=== PATIENT | female | born 1980 | race Caucasian/White ===

== ENCOUNTER 2019-09-10 17:01 | Inpatient (IN) ==
[2019-09-10] MEDS ORDERED: RINGER'S SOLUTION,LACTATED 1,000 ML IV ONE (20:21)
[2019-09-10] MEDS ORDERED: DEXTROSE 5%-LACTATED RINGERS 1,000 ML IV PRN (20:21)
[2019-09-10] MEDS ORDERED: PENICILLIN G POTASSIUM 5 MILLIONUNT in DEXTROSE 5 % IN WATER 100 ML IV ONE ×2 (20:21)
[2019-09-10] MEDS ORDERED: OXYTOCIN/DEXTROSE 5%-WATER 30 UNITS/500 ML BAG IV ONE (20:21)
[2019-09-10] MEDS ORDERED: ONDANSETRON 4 MG TAB.RAPDIS PO PRN (20:21)
[2019-09-10] MEDS ORDERED: INSULIN REGULAR, HUMAN 100 UNITS in NORMAL SALINE 100 ML IV PRN ×2 (20:34)
[2019-09-10 20:45] LABS: Hematocrit 37.8 % (37.0-47.0); Hemoglobin 13.1 gm/dL (12.5-16.0); Mean Cell Volume 89.2 fl (78-100); Mean Corpuscular Hemoglobin 30.9 pg (27-31); Mean Corpuscular Hgb Conc 34.7 g/dl (32-36); Mean Platelet Volume 10.1 fl (8-12.5); Neutrophil # 6.9 K/mm3 (1.3-6.0); Neutrophil % 66.8 % (42-75.0); Platelet Count 185 K/mm3 (150-450); Red Blood Count 4.24 M/mm3 (4.2-5.4); White Blood Count 10.4 K/mm3 (4.0-10.5)
--- NOTE | 2019-09-10 21:03 | HP ---
Chief Complaint - Chief Complaint Date of Service: 09/10/19 Time of Service: 20:51 Chief Complaint: Induction/Augmentation of labor History of Present Illness: 38 yo at 38 weeks admitted for induction/augmentation of labor due to oligohydramnios and 2 min late deceleration on NST. This complicated by anemia, AMA, PE at 11wks gestation, GDM, and oligohydramnios. Rh negative Rubella immune GBS positive Medical History (Last Reviewed 09/10/19 @ 20:53 by Anastacio Carter DO) Pulmonary embolism (Acute) Onset Date: ~04/2011-hospitalized x1 week.- 03/09/18-PE with Gestational diabetes Onset Date: 07/10/19 Migraine Onset Date: Unknown PCOS (polycystic ovarian syndrome) Onset Date: ~06/06/16 Abnormal Pap smear of cervix Onset Date: ~2001 Anemia affecting Onset Date: ~07/05/13 Deviated nasal septum Onset Date: ~1993 repaired History of chlamydia infection Onset Date: ~1998 History of irregular menstrual cycles Onset Date: Unknown Surgical History: Surgical History (Last Reviewed 09/10/19 @ 20:53 by Anastacio Carter DO) History of adenoidectomy Onset Date: ~1994 History of colposcopy Onset Date: ~2002 History of cryosurgery Onset Date: ~2002 History of dilation and curettage Onset Date: ~11/02/11 History of hysteroscopy Onset Date: ~11/02/11 polypectomy History of wisdom tooth extraction Onset Date: ~2004 Family History: Family History (Last Reviewed 09/10/19 @ 20:53 by Anastacio Carter DO) Mother Osteoarthritis Hypertension Uterine fibroid hysterectomy Father COPD (chronic obstructive pulmonary disease) Osteoarthritis Emphysema of lung Sister Cervical cancer, Onset Age: 16 Social History: (Last Reviewed 09/10/19 @ 20:54 by Anastacio Carter DO) Social History: Marital status: current occupational status: employed 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 [employer]: No Tobacco: Smoking Status: Never smoker Alcohol: alcohol intake: former Substance Use: substance use type: does not use Dietary Habits: caffeine: Yes Review Of Systems (GEN) - Review of Systems Generalized/Overall Review: Present: No Symptoms Reported EENTM: Present: No Symptoms Reported Respiratory: Present: No Symptoms Reported Cardiac: Present: No Symptoms Reported Abdominal: Present: Other - contractions q 3-4 min Genitourinary: Present: No Symptoms Reported Musculoskeletal: Present: No Symptoms Reported Neurological: Present: No Symptoms Reported Skin: Present: No Symptoms Reported Endocrine: Present: No Symptoms Reported Allergies/Adverse Reactions: Allergies Allergy/AdvReac Type Severity Reaction Status Date / Time No Known Allergies Allergy Verified 09/10/19 15:15 Home Medications: HOME MEDICATIONS Vits96/Iron Fum/Folic [ S] 1 tab PO DAILY 09/26/13 [Last Taken 09/09/19] enoxaparin 100 mg/mL subcutaneous syringe 100 mg SUBCUT Q12H 03/12/19 [Last Taken 09/10/19 12:00] ferrous sulfate 325 mg (65 mg iron) tablet 325 mg PO DAILY #30 tab 07/03/19 [Last Taken 09/09/19] acetone (urine) test See Rx Instructions .ROUTE .MEDSUPPLY #100 ea 07/12/19 [Last Taken Unknown] blood sugar diagnostic See Rx Instructions .ROUTE .MEDSUPPLY #100 ea 07/12/19 [Last Taken 09/10/19] blood-glucose meter See Rx Instructions .ROUTE .MEDSUPPLY #1 ea 07/12/19 [Last Taken 09/10/19] lancets 28 gauge See Rx Instructions .ROUTE .MEDSUPPLY #100 ea 07/12/19 [Last Taken 09/10/19] Ascorbic Acid [Vitamin C] 1,000 mg PO DAILY 09/10/19 [Last Taken 09/09/19] breast pump See Rx Instructions .ROUTE .MEDSUPPLY #1 ea 09/10/19 [Last Taken Unknown] Exam - Exam Vital Signs: Vital Signs - Last Taken Temp 36.3 C 09/10/19 20:29 Pulse 97 09/10/19 20:29 Resp 18 09/10/19 20:29 BP 131/83 09/10/19 20:29 Pulse Ox 98 09/10/19 20:29 Constitutional: Present: Alert, Oriented x3, Cooperative, No distress ENT Exam: Present: hearing grossly normal Neck: Absent: thyromegaly Breasts: Present: Exam deferred Respiratory: Present: lungs clear, no respiratory distress Cardiovascular/Chest: Present: regular rate, rhythm, no edema Abdomen: Present: soft, nontender, no rebound tenderness, other - gravid /Rectal: Present: Other - Cervix - 3-4//-2 Extremity: Present: no pedal edema, no calf tenderness Skin Exam: Present: normal color, warm/dry, no cyanosis Neurologic: Present: alert, normal mood/affect, oriented x 3 Eye contact: Present: cooperative, good eye contact, normal speech Thoughts: Present: normal thought pattern Diagnostic Studies: Abnormal Lab Results 09/10/19 Range/Units 20:25 Immature Gran % (Auto) 1.00 H (0.001-0.429) % Immature Gran # (Auto) 0.10 H (0.000-0.0310) K/mm3 Neutrophils # 6.9 H (1.3-6.0) K/mm3 Laboratory Results WBC 10.4 K/mm3 (4.0-10.5) 09/10/19 20:25 RBC 4.24 M/mm3 (4.2-5.4) 09/10/19 20:25 Hgb 13.1 gm/dL (12.5-16.0) 09/10/19 20:25 Hct 37.8 % (37.0-47.0) 09/10/19 20:25 MCV 89.2 fl (78-100) 09/10/19 20:25 MCH 30.9 pg (27-31) 09/10/19 20:25 MCHC 34.7 g/dl (32-36) 09/10/19 20:25 RDW 14.0 % (11.5-14.0) 09/10/19 20:25 Plt Count 185 K/mm3 (150-450) 09/10/19 20:25 MPV 10.1 fl (8-12.5) 09/10/19 20:25 Immature Gran % (Auto) 1.00 % (0.001-0.429) H 09/10/19 20:25 Immature Gran # (Auto) 0.10 K/mm3 (0.000-0.0310) H 09/10/19 20:25 Neutrophils % 66.8 % (42-75.0) 09/10/19 20:25 Lymphocytes % 24.3 % (20-51) 09/10/19 20:25 Monocytes % 6.8 % (0.0-9) 09/10/19 20:25 Eosinophils % 0.9 % (0.0-3.0) 09/10/19 20:25 Basophils % 0.2 % (0.0-1.0) 09/10/19 20:25 Nucleated RBC % 0.0 k/mm3 (0-1) 09/10/19 20:25 Neutrophils # 6.9 K/mm3 (1.3-6.0) H 09/10/19 20:25 Lymphocytes # 2.52 k/mm3 (1.5-3.5) 09/10/19 20:25 Monocytes # 0.7 k/mm3 (0.0-1.0) 09/10/19 20:25 Eosinophils # 0.1 k/mm3 (0.0-0.7) 09/10/19 20:25 Absolute Basophils 0.0 k/mm3 (0.0-0.1) 09/10/19 20:25 Assessment/Plan - Assessment/Plan (1) Late deceleration of heart rate Assessment: Admit for pitocin augmentation of labor. IV PCN for GBS prophylaxis per protocol. Accuchecks q2h while in labor. Restart Lovenox 100mg BID 8-12 hours after delivery. Problem: Acute (2) Oligohydramnios Problem: Acute Qualifiers: Fetus number: single or unspecified fetus Trimester: third trimester Qualified Code(s): O41.03X0 - Oligohydramnios, third trimester, not applicable or unspecified (3) AMA (advanced maternal age) multigravida 35+ Problem: Chronic Qualifiers: Trimester: third trimester (4) Gestational diabetes mellitus (GDM) Problem: Acute Qualifiers: Gestational diabetes mellitus control: diet-controlled Trimester: third trimester Qualified Code(s): O24.410 - Gestational diabetes mellitus in , diet controlled (5) Group beta Strep positive Problem: Acute (6) Pulmonary embolism Problem: Resolved Qualifiers: Pulmonary embolism type: single subsegmental (without acute cor pulmonale) Qualified Code(s): I26.93 - Single subsegmental pulmonary embolism without acute cor pulmonale
[2019-09-11] MEDS: PENICILLIN G POTASSIUM 2.5 MILLIONUNT in DEXTROSE 5 % IN WATER 100 ML IV SCH ×8 (00:43→12:49)
--- NOTE | 2019-09-11 00:52 | PN ---
Progess Note - Interim Date: 09/11/19 Time: 00:48 Narrative: 09/11/19 00:48 Patient rating her contractions as a 3 out of 10 Vital signs stable. Pitocin at 8 mu/min. FHT: 130 baseline, reassuring contractions q 2-3 min Cervix: 3-4/70/-3 Impression: Intrauterine at 38 1/7 weeks induction of labor for oligohydramnios and late deceleration on NST. GBS carrier-status post 1 dose penicillin, second dose infusing at present. Gestational diabetes-stable. Pulmonary embolism during first trimester of this on therapeutic anticoagulation. Last dose of Lovenox 100 mg subcu x1 given at 12 PM yesterday. Plan: Continue with induction of labor. Continue IV penicillin per GBS protocol. Continue Accu-Cheks every 2 hours during labor. Will hold Lovenox until 8 hours after delivery.
--- NOTE | 2019-09-11 06:54 | PN ---
Progess Note - Interim Date: 09/11/19 Time: 06:49 Narrative: 09/11/19 06:49 Patient still rating contractions as mild 3/10. Vital signs stable. Pitocin at 14 mu/min. FHT: 135 baseline, reassuring with an occasional late deceleration contractions q 2-4 min Cervix: 4-5/70/-3, posterior Impression: Intrauterine at 38 1/7 weeks induction of labor for oligohydramnios with late deceleration on tracing. Plan: Since patient has made little cervical liner roll changer the past several hours, we will give her a pitocin break and restart in 1 hour.
--- NOTE | 2019-09-11 13:05 | PN ---
Progess Note - Interim Date: 09/11/19 Time: 13:02 Narrative: 09/11/19 13:02 Patient becoming more uncomfortable with contractions Vital signs stable. Pitocin at 10 mu/min. FHT: 140 baseline, reassuring contractions q 2-5 min Cervix: 5/80/-2, AROM-moderate meconium Impression: Intrauterine at 38 1/7 weeks induction of labor for oligohydramnios with late deceleration on NST in office. Gestational diabetes- stable. PE in first trimester of on therapeutic thrombolytics-off now 24 hours. GBS positive-status post 5 doses of penicillin. Plan: Anticipate normal spontaneous vaginal delivery soon.
--- NOTE | 2019-09-11 15:32 | OR ---
Operative Report - Dictated Report Narrative: Spontaneous vaginal delivery of viable male at 1512 on 09/11/2019 with Apgars 7 and 9, weighing 3380 g and OA presentation. Cord clamping delayed approximately 1 minute Placenta delivered complete, intact, with three vessel cord Estimated blood loss: Less than 50 ml Anesthesia: None Lacerations: None History for MU History for Definition: * The number of deliveries resulting in a live the patient experienced prior to current hospitalization * The previous delivery of live twins or any live multiple gestation is considered one live event. *If primagravida or nulliparous is documented select zero for the number of previous live births. Live Events: Live Events: 2
[2019-09-11] MEDS ORDERED: SENNOSIDES 8.6 MG TABLET PO PRN (15:43)
[2019-09-11] MEDS ORDERED: IBUPROFEN 800 MG TABLET PO PRN (15:43)
[2019-09-11] MEDS ORDERED: oxyCODONE HCL/ACETAMINOPHEN 1 TAB TABLET PO PRN (15:43)
[2019-09-11] MEDS ORDERED: BENZOCAINE/MENTHOL 81 SPRAY CAN TP PRN (15:43)
[2019-09-11] MEDS ORDERED: HYDROCORTISONE 30 APPL TUBE TP PRN (15:43)
[2019-09-11] MEDS ORDERED: OXYTOCIN/DEXTROSE 5%-WATER 30 UNITS/500 ML BAG IV ONE (15:43)
[2019-09-11] MEDS ORDERED: BISACODYL 10 MG SUPP.RECT RC PRN (15:43)
[2019-09-11] MEDS ORDERED: GLYCERIN/WITCH HAZEL LEAF 40 APPL BOX TP PRN (15:43)
[2019-09-11] MEDS: IBUPROFEN 800 MG TABLET PO PRN (17:57)
[2019-09-11] MEDS ORDERED: RHO(D) IMMUNE GLOBULIN 1,500 UNIT SYRINGE IM ONE (20:12)
[2019-09-11] MEDS: DOCUSATE SODIUM 100 MG CAPSULE PO SCH (22:14)
[2019-09-11] MEDS: ENOXAPARIN SODIUM 100 MG/ML SYRG SC SCH (23:32)
[2019-09-12] MEDS: FERROUS SULFATE 325 MG TABLET PO SCH (08:34)
[2019-09-12] MEDS: ASCORBIC ACID 500 MG TABLET PO SCH (08:34)
[2019-09-12] MEDS: PRENATAL VITS96/IRON FUM/FOLIC 1 TAB TABLET PO SCH (08:35)
[2019-09-12] MEDS: DOCUSATE SODIUM 100 MG CAPSULE PO SCH ×2 (08:39→20:45)
[2019-09-12] MEDS: ENOXAPARIN SODIUM 100 MG/ML SYRG SC SCH ×2 (11:25→23:12)
--- NOTE | 2019-09-12 12:03 | PN ---
Subjective - Date and Time Seen Date: 09/12/19 Time: 12:02 Objective - Vitals Vitals: Last Vital Signs Temp 36.7 C 09/12/19 06:55 Pulse 95 09/12/19 06:55 Resp 18 09/12/19 06:55 BP 127/80 09/12/19 06:55 Pulse Ox 97 09/12/19 06:55 Patient denies complaints. Breast-feeding Lochia wnl abdomen - soft, nontender Uterus -firm, at umbilicus - 1 no calf tenderness Impression: day #1 - s/p spontaneous vaginal delivery. Gestational diabetes with elevated 1 hour postprandial blood sugar. PE in first trimester on therapeutic thrombolytics. Plan: Continue routine care, thrombolytics, and recheck fasting and 1 hour postprandial blood sugar in a.m. Assessment/Plan - Problems/Diagnosis (1) Late deceleration of heart rate Problem: Acute (2) Oligohydramnios Problem: Acute Qualifiers: Fetus number: single or unspecified fetus Trimester: third trimester Qualified Code(s): O41.03X0 - Oligohydramnios, third trimester, not applicable or unspecified (3) AMA (advanced maternal age) multigravida 35+ Problem: Chronic Qualifiers: Trimester: third trimester (4) Gestational diabetes mellitus (GDM) Problem: Acute Qualifiers: Gestational diabetes mellitus control: diet-controlled Trimester: third t Qualified Code(s): O24.410 - Gestational diabetes mellitus in , diet controlled (5) Group beta Strep positive Problem: Acute (6) Pulmonary embolism Problem: Resolved Qualifiers: Pulmonary embolism type: single subsegmental (without acute cor pulmonale) Qualified Code(s): I26.93 - Single subsegmental pulmonary embolism without acute cor pulmonale
[2019-09-12] MEDS: IBUPROFEN 800 MG TABLET PO PRN (19:07)
[2019-09-13 07:43] VITALS: BP 120/81
[2019-09-13] MEDS: DOCUSATE SODIUM 100 MG CAPSULE PO SCH (08:16)
[2019-09-13] MEDS: PRENATAL VITS96/IRON FUM/FOLIC 1 TAB TABLET PO SCH (08:16)
[2019-09-13] MEDS: FERROUS SULFATE 325 MG TABLET PO SCH (08:16)
[2019-09-13] MEDS: ASCORBIC ACID 500 MG TABLET PO SCH (08:19)
[2019-09-13] MEDS: ENOXAPARIN SODIUM 100 MG/ML SYRG SC SCH (10:09)
--- NOTE | 2019-09-13 11:06 | PN ---
Subjective - Date and Time Seen Date: 09/13/19 Time: 11:05 Objective - Vitals Vitals: Last Vital Signs Temp 36.8 C 09/13/19 06:45 Pulse 73 09/13/19 06:45 Resp 14 09/13/19 06:45 BP 120/81 09/13/19 06:45 Pulse Ox 98 09/13/19 06:45 Patient denies complaints. Breast-feeding well. Fasting blood sugar 77, 1 hour postprandial 129 Lochia wnl abdomen - soft, nontender Uterus -firm, at umbilicus - 2 no calf tenderness Impression: day #2 - s/p spontaneous vaginal delivery. Gestational diabetes-resolved. Pulmonary embolism in first trimester-resolved. Advanced maternal age. Plan: Routine discharge instructions. Will adjust Lovenox dosing per heme/oncologist recommendations. Assessment/Plan - Problems/Diagnosis (1) Late deceleration of heart rate Problem: Resolved (2) Oligohydramnios Problem: Resolved Qualifiers: Fetus number: single or unspecified fetus Trimester: third trimester Qualified Code(s): O41.03X0 - Oligohydramnios, third trimester, not applicable or unspecified (3) AMA (advanced maternal age) multigravida 35+ Problem: Inactive Qualifiers: Trimester: third trimester Qualified Code(s): O09.523 - Supervision of elderly multigravida, third trimester (4) Gestational diabetes mellitus (GDM) Problem: Resolved Qualifiers: Gestational diabetes mellitus control: diet-controlled Trimester: third trimester Qualified Code(s): O24.410 - Gestational diabetes mellitus in , diet controlled (5) Group beta Strep positive Problem: Inactive (6) Pulmonary embolism Problem: Resolved Qualifiers: Pulmonary embolism type: single subsegmental (without acute cor pulmonale) Qualified Code(s): I26.93 - Single subsegmental pulmonary embolism without acute cor pulmonale
== END 2019-09-13 12:00 | disposition home or self-care (01) | DRG 807 ==
LOC: OB 17:01
PROVIDERS: ADMIT Obstetrics & Gynecology; ATTEND Obstetrics & Gynecology
CPT/HCPCS: 36415; 59025; 85025; 85460; 86850; 88307; 88888; J2790